=== PATIENT | female | born 1990 | race Caucasian/White ===

== ENCOUNTER 2018-11-19 12:11 | Emergency (ER) | payer OTHER ==
[2018-11-19 12:40] VITALS: BP 115/55; PULSE 88; RESP 18; TEMP 97.9; O2SAT 99
[2018-11-19] MEDS ORDERED: Sodium Chloride 0.9% 1,000 ML IV STA (12:45)
--- NOTE | 2018-11-19 12:51 | ED PDOC ---
Arrival/HPI - General Chief Complaint: Dizziness/Lightheaded Historian: Patient - History of Present Illness Narrative History of Present Illness (Text): 11/19/18 12:46 28 year old female, with no significant past medical history history, presents to the emergency department complaining of left jaw pain radiating to the left sinus area and behind the left ear associated with a headache that began this morning. Patient reports she took 6 pills of Tylenol 650mg within 2 hours with no relief. She denies any history of these symptoms in the past. Patient is currently on her menstrual period and denies being on control. Patient also reports dizziness and nausea, but denies any fever, chills, chest pain, shortness of breath, vomiting, diarrhea, back pain, neck pain, or any other complaints. PMD: Dr. Munoz Time/Duration: Other (this morning) Symptom Onset: Sudden Symptom Course: Unchanged Activities at Onset: Light Context: Home Past Medical History - Provider Review Nursing Documentation Reviewed: Yes - Travel History Have you recently traveled outside [place] w/in the past 3 mons?: No - Reproductive Currently : No - Psychiatric Hx Substance Use: No - Anesthesia Hx Anesthesia: No Hx Anesthesia Reactions: No Hx Malignant Hyperthermia: No Family/Social History - Physician Review Nursing Documentation Reviewed: Yes Family/Social History: No Known Family HX Smoking Status: Never Smoked Hx Alcohol Use: No Hx Substance Use: No Allergies/Home Meds Allergies/Adverse Reactions: Allergies No Known Allergies Allergy (Verified 11/19/18 12:21) Review of Systems - Physician Review All systems were reviewed & negative as marked: Yes - Review of Systems Constitutional: absent: Fevers, Other (chills) ENT: Other (left jaw pain radiating to the left sinus area and behing the left ear) Respiratory: absent: SOB Cardiovascular: absent: Chest Pain Gastrointestinal: Nausea. absent: Diarrhea, Vomiting Musculoskeletal: absent: Back Pain, Neck Pain Neurological: Headache, Dizziness Physical Exam Vital Signs Reviewed: Yes Vital Signs Temp Pulse Resp BP Pulse Ox 11/19/18 12:35 97.9 F 88 18 115/55 L 99 Temperature: Afebrile Blood Pressure: Normal Pulse: Regular Respiratory Rate: Normal Appearance: Positive for: Well-Appearing, Non-Toxic, Comfortable Pain Distress: None Mental Status: Positive for: Alert and Oriented X 3 - Systems Exam Head: Present: Atraumatic, Normocephalic, Tenderness (to palpation of left frontal and maxillary sinus) Extroacular Muscles: Present: EOMI (no pain with extraoccular movements) Ears: Present: Other (swelling and tenderness to the post-auricular surface) Pharnyx: No: ERYTHEMA, EXUDATE, Other (no Palatal lesions) Respiratory/Chest: Present: Clear to Auscultation. No: Wheezes, Rales, Rhonchi Cardiovascular: Present: Regular Rate and Rhythm, Normal S1, S2. No: Murmurs, Rub, Gallop Abdomen: Present: Other (soft). No: Tenderness, Distention Psychiatric: Present: Alert, Oriented x 3, Normal Insight, Normal Concentration, Other (tearful) Medical Decision Making ED Course and Treatment: 11/19/18 12:46 Impression: 28 year old female presents complaining of left jaw pain radiating to the left sinus area and behind the left ear associated with a headache, dizziness, and nausea that began this morning. Differential Diagnosis included but are not limited to: Plan: -- VBG -- CT Sinuses w/o contrast -- Lab -- Reglan, IV Fluids -- Blood Culture -- POC Urine -- UA -- Reassess and disposition Prior Visits: Notes and results from pervious visits were reviewed. Progress Notes: 11/19/18 16:22 Labs reviewed with no acute abnormalities. Call to chemical radiation technician who stat es CT sinuses with contrast would be best study to confirm for evidence of inflammation or infection. CT study changed. 11/19/18 16:[address] Rosenthal(reading radiologist) who states CT sinuses will not visualize temporal bones. He states patient may receive repeat CT scan w/o to confirm mastoiditis. Presented possibility of repeat CT to patient who feels better and desires to defer to her PCP. Patient advised to take PO analgesics and to follow up with her PCP. She is stable for discharge. - Lab Interpretations Lab Results: 11/19/18 13:28 11/19/18 13:28 Lab Results 11/19/18 13:28: Sodium 139, Chloride 109 H, Potassium 3.8, Carbon Dioxide 26, Anion Gap 9 L, BUN 8, Creatinine 0.7, Est GFR ( Amer) > 60, Est GFR (Non- Af Amer) > 60, Random Glucose 112 H, Calcium 9.3, Total Bilirubin 0.3, AST 19, ALT 19, Alkaline Phosphatase 60, Total Protein 7.3, Albumin 4.0, Globulin 3.3, Albumin/Globulin Ratio 1.2 11/19/18 13:28: pO2 67 H, VBG pH 7.35, VBG pCO2 47.0, VBG HCO3 25.9, VBG Total CO2 27.3, VBG O2 Sat (Calc) 96.5 H, VBG Base Excess -0.2 L, VBG Potassium 3.6, Sodium 139.0, Chloride 107.0, Glucose 112 H, Lactate 1.0, FiO2 21.0, Venous Blood Potassium 3.6 11/19/18 13:28: PT 11.6, INR 1.03, APTT 30.8, D-Dimer, Quantitative < 200 11/19/18 13:28: WBC 7.2, RBC 4.38, Hgb 12.7, Hct 38.9, MCV 88.8, MCH 29.0, MCHC 32.6, RDW 13.5, Plt Count 273, MPV 9.9, Neut % (Auto) 54.6, Lymph % (Auto) 36.3 H, [place] % (Auto) 5.2, Eos % (Auto) 3.6, Baso % (Auto) 0.3, Lymph # (Auto) 2.6, [place] # (Auto) 0.4, Eos # (Auto) 0.3, Baso # (Auto) 0.02, Absolute Neuts (auto) 3.92 11/19/18 13:07: Urine Color Light red, Urine Appearance Slight-cloudy, Urine pH 6.5, Ur Specific [place] 1.015, Urine Protein 30 H, Urine Glucose (UA) Negative, Urine Ketones Negative, Urine Blood Large H, Urine Nitrate Negative, Urine Bilirubin Negative, Urine Urobilinogen 0.2, Ur Leukocyte Esterase Moderate H, Urine RBC Tntc H, Urine WBC 25 - 30 H, Ur Epithelial Cells 3 - 4, Urine Bacteria Many I have reviewed the lab results: Yes - RAD Interpretation Narrative RAD Interpretations (Text): PROCEDURE: CT Sinuses w/ contrast SIGNED BY: Librado Rosenthal DO DATE SIGNED: 11/19/18 7328 IMPRESSION: There is mild mucosal thickening right maxillary antrum. Hypoplastic appearance of the frontal sinus. Middle ear canals appear unremarkable however not that most of the mastoid air complexes have been excluded from this study including including the external auditory canal and surrounding soft tissues of the anterior and posterior auricular regions bilaterally. PROCEDURE: CXR Dictated Date/Time: 11/19/18 1319 Signed By: Librado Rosenthal DO Impression: No active disease. Prepared Foods Team Leader: Radiologist - Medication Orders Current Medication Orders: 11/22/18 11:25 11/19/18 13:28 11/19/18 13:28 Lab Results 11/19/18 13:28: Sodium 139, Chloride 109 H, Potassium 3.8, Carbon Dioxide 26, Anion Gap 9 L, BUN 8, Creatinine 0.7, Est GFR ( Amer) > 60, Est GFR (Non- Af Amer) > 60, Random Glucose 112 H, Calcium 9.3, Total Bilirubin 0.3, AST 19, ALT 19, Alkaline Phosphatase 60, Total Protein 7.3, Albumin 4.0, Globulin 3.3, Albumin/Globulin Ratio 1.2 11/19/18 13:28: pO2 67 H, VBG pH 7.35, VBG pCO2 47.0, VBG HCO3 25.9, VBG Total CO2 27.3, VBG O2 Sat (Calc) 96.5 H, VBG Base Excess -0.2 L, VBG Potassium 3.6, Sodium 139.0, Chloride 107.0, Glucose 112 H, Lactate 1.0, FiO2 21.0, Venous Blood Potassium 3.6 11/19/18 13:28: PT 11.6, INR 1.03, APTT 30.8, D-Dimer, Quantitative < 200 11/19/18 13:28: WBC 7.2, RBC 4.38, Hgb 12.7, Hct 38.9, MCV 88.8, MCH 29.0, MCHC 32.6, RDW 13.5, Plt Count 273, MPV 9.9, Neut % (Auto) 54.6, Lymph % (Auto) 36.3 H, [place] % (Auto) 5.2, Eos % (Auto) 3.6, Baso % (Auto) 0.3, Lymph # (Auto) 2.6, [place] # (Auto) 0.4, Eos # (Auto) 0.3, Baso # (Auto) 0.02, Absolute Neuts (auto) 3.92 11/19/18 13:07: Urine Color Light red, Urine Appearance Slight-cloudy, Urine pH 6.5, Ur Specific [place] 1.015, Urine Protein 30 H, Urine Glucose (UA) Negative, Urine Ketones Negative, Urine Blood Large H, Urine Nitrate Negative, Urine Bilirubin Negative, Urine Urobilinogen 0.2, Ur Leukocyte Esterase Moderate H, Urine RBC Tntc H, Urine WBC 25 - 30 H, Ur Epithelial Cells 3 - 4, Urine Bacteria Many - Scribe Statement The provider has reviewed the documentation as recorded by the Scribe Janette Fiore Provider Scribe Attestation: All medical record entries made by the Scribe were at my direction and personally dictated by me. I have reviewed the chart and agree that the record accurately reflects my personal performance of the history, physical exam, medical decision making, and the department course for this patient. I have also personally directed, reviewed, and agree with the discharge instructions and disposition. Disposition/Present on Arrival - Present on Arrival Any Indicators Present on Arrival: No History of DVT/PE: No History of Uncontrolled Diabetes: No Urinary Catheter: No History of Decub. Ulcer: No History Surgical Site Infection Following: None - Disposition Have Diagnosis and Disposition been Completed?: Yes Diagnosis: Headache Disposition: HOME/ ROUTINE Disposition Time: 16:32 Patient Plan: Discharge Condition: IMPROVED Discharge Instructions (ExitCare): Headache, Adult (DC), Tension Headache (DC) Print Language: NIGERIAN Additional Instructions: All medical record entries made by the Scribe were at my direction and personally dictated by me. I have reviewed the chart and agree that the record accurately reflects my personal performance of the history, physical exam, medical decision making, and the department course for this patient. I have also personally directed, reviewed, and agree with the discharge instructions and disposition. Please follow up with Dr. Abelardo Mancilla Prescriptions: Ibuprofen [Motrin] 600 mg PO Q6H #12 tab Metoclopramide HCl [Reglan] 10 mg PO PRN PRN #10 tablet PRN Reason: Nausea/Vomiting Referrals: Robert Munoz MD [Primary Care Provider] - Follow up with primary Forms: Rafter (Nepali)
[2018-11-19 13:14] LABS: PH,URINE 6.5 (4.7-8.0); URINE BILIRUBIN NEGATIVE (NEGATIVE); URINE BLOOD LARGE (NEGATIVE); URINE GLUCOSE (UA) NEGATIVE (NEGATIVE); URINE LEUKOCYTE ESTERASE MODERATE Leu/uL (NEGATIVE); URINE PROTEIN 30 mg/dL (<30 mg/dL); URINE UROBILINOGEN 0.2 E.U./dL (<1 E.U./dL)
--- NOTE | 2018-11-19 13:22 | RAD ---
Date of service: 11/19/2018 HISTORY: SOB COMPARISON: No prior. FINDINGS: LUNGS: No active pulmonary disease. PLEURA: No significant pleural effusion identified, no pneumothorax apparent. CARDIOVASCULAR: No aortic atherosclerotic calcification present. Normal cardiac size. No pulmonary vascular congestion. OSSEOUS STRUCTURES: No significant abnormalities. VISUALIZED UPPER ABDOMEN: Normal. OTHER FINDINGS: None. IMPRESSION: No active disease.
[2018-11-19 13:23] LABS: URINE COLOR LIGHT RED (YELLOW)
[2018-11-19 13:24] LABS: URINE APPEARANCE SLIGHT-CLOUDY (CLEAR)
[2018-11-19 13:31] LABS: VENOUS BLOOD GAS BASE EXCESS -0.2 mmol/L (0.0-2.0); VENOUS BLOOD GAS PO2 67 mm/Hg (30-55); VENOUS BLOOD PH 7.35 (7.32-7.43)
[2018-11-19 13:33] LABS: BASO # 0.02 K/mm3 (0.0-2.0); BASO % 0.3 % (0.0-3.0); EOS # 0.3 (0.0-0.7); EOS % 3.6 % (1.5-5.0); HEMOGLOBIN 12.7 g/dL (12.0-16.0); LYMPH # 2.6 (1.2-3.4); LYMPH % 36.3 % (22.0-35.0); MEAN CELL VOLUME 88.8 fl (80.0-105.0); MEAN CORPUSCULAR HGB CONC 32.6 g/dl (31.0-37.0); MEAN PLATELET VOLUME 9.9 fl (7.0-11.0); MONO # 0.4 (0.1-0.6); MONO % 5.2 % (1.0-6.0); RBC 4.38 10^6/uL (3.5-6.1); RED CELL DISTRIBUTION WIDTH 13.5 % (11.5-14.5); WHITE BLOOD COUNT 7.2 10^3/uL (4.5-11.0)
[2018-11-19 13:41] LABS: URINE RBC TNTC /hpf (0-2)
[2018-11-19 13:42] LABS: URINE BACTERIA MANY /hpf; URINE WBC 25 - 30 /hpf (0-6)
[2018-11-19 13:42] LABS: INR 1.03; PARTIAL THROMBOPLASTIN TIME 30.8 Seconds (26.9-38.3); PROTHROMBIN TIME 11.6 SECONDS (9.4-12.5)
[2018-11-19 13:44] LABS: ALB/GLOB RATIO 1.2 (1.1-1.8); ALT/SGPT 19 U/L (7-56); AST/SGOT 19 U/L (14-36); BLOOD UREA NITROGEN 8 mg/dL (7-21); CALCIUM 9.3 mg/dL (8.4-10.5); GFR NON-AFRICAN AMERICAN > 60
[2018-11-19 13:46] LABS: D DIMER < 200 ng/mlDDU (0-243)
[2018-11-19] MEDS ORDERED: Iohexol 350 MG/100 ML VIAL ONE (14:03)
--- NOTE | 2018-11-19 16:32 | CT ---
Date of service: 11/19/2018 PROCEDURE: CT SINUSES WITH CONTRAST HISTORY: Headache with left jaw and posterior auricular pain; rule out the mastoiditis COMPARISON: None available. TECHNIQUE: Following intravenous administration of iodinated contrast, contiguous axial images of the paranasal sinuses were performed. Coronal and sagittal reformats were generated. Intravenous contrast dose: 96 cc Omnipaque 350 contrast material. Radiation dose: Total exam DLP = 802.63 mGy-cm. This CT exam was performed using one or more of the following dose reduction techniques: Automated exposure control, adjustment of the mA and/or kV according to patient size, and/or use of iterative reconstruction technique. FINDINGS: The frontal sinuses are FRONTAL SINUSES: Frontal sinuses are are hypoplastic more so on the right side. The small partially aerated left frontal sinus clear. ETHMOID SINUSES: Ethmoid air complex well-developed and clear. SPHENOID SINUSES: Sphenoid sinuses are clear. MAXILLARY SINUSES: Maxillary antra are well developed. There is mild mucosal thickening seen in the inferior aspect of the right maxillary antrum.. SINUS DRAINAGE: Osteomeatal complexes, frontal recesses and sphenoethmoid recesses clear. NASAL SEPTUM: No significant deviation. No destructive lesion. MASS: None. SKULL BASE: Skull base intact so far as can be seen TEMPORAL BONES: The middle ear canals appear unremarkable. Most of of both mastoid portions of temporal bones have been excluded from this study of particularly on the right side the and therefore cannot be adequately evaluated. Also, the soft tissues of the external auditory canal and both pinna including the posterior auricular soft tissues have been excluded from the study OTHER FINDINGS:: None. IMPRESSION: There is mild mucosal thickening right maxillary antrum. Hypoplastic appearance of the frontal sinus. Middle ear canals appear unremarkable however note that most of the mastoid air complexes have been excluded from this study including including the external auditory canal and surrounding soft tissues of the anterior and posterior auricular regions bilaterally
== END 2018-11-19 16:42 | disposition home or self-care (01) ==
LOC: ED 12:11
DX: R51 Headache (principal)
CPT/HCPCS: 70487; 71045; 80053; 81001; 81025; 82803; 85025; 85378; 85610; 85730; 87040; 87086; 96361; 96374; 96375; 99285; J1885; J2765; J7030; Q9967